=== PATIENT | male | born 1970 ===

== ENCOUNTER 2017-08-23 09:30 | Emergency (ER) | payer BC ==
[2017-08-23] MEDS ORDERED: Tetan/Diph/Pertus SYR(Tdap)* 0.5 ML SYR(BOOSTRIX) use SYR IM ONE (09:36)
--- NOTE | 2017-08-23 09:48 | UC ---
Twila Lo Gabriel, scribed for Federico Hadley MD on 08/23/17 at 0944 . Laceration HPI - HPI Summary HPI Summary: This patient is a 47 year old M presenting to [facility] – [place], [place] with a chief complaint of an abrasion on his right hand. 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 He is not UTD on his vaccinations. The patient rates the pain 1/10 in severity. - History Of Current Complaint Chief Complaint: UCLaceration Stated Complaint: LACERATION Time Seen by Provider: 08/23/17 09:36 Hx Obtained From: Patient Laceration Location: Hand Mechanism Of Injury: Sharp Trauma Onset/Duration: Still Present Severity: Mild Pain Intensity: 1 Pain Scale Used: 0-10 Numeric - Allergies/Home Medications Allergies/Adverse Reactions: Allergies Allergy/AdvReac Type Severity Reaction Status Date / Time No Known Allergies Allergy Verified 08/23/17 09:40 Home Medications: Home Medications NK [No Home Medications Reported] 08/23/17 [History Confirmed 08/23/17] PMH/Surg Hx/FS Hx/Imm Hx Other History Of: Negative For: HIV, Hepatitis B, Hepatitis C - Surgical History Surgical History: None - Family History Known Family History: Negative: Cardiac Disease, Hypertension, Diabetes, Renal Disease, Respiratory Disease, Seizure Disorder, Blood Disorder - Social History Occupation: Employed Full-time Lives: With Family Alcohol Use: None Substance Use Type: None Smoking Status (MU): Never Smoked Tobacco Review of Systems Constitutional: Negative - fever Skin: Other - cut on hand All Other Systems Reviewed And Are Negative: Yes Physical Exam - Summary Physical Exam Summary: VITAL SIGNS: Reviewed. GENERAL: Patient is a well-developed and nourished male who is lying comfortable in the stretcher. Patient is not in any acute respiratory distress. HEAD AND FACE: Normocephalic EYES: PERRLA, EOMI x 2. EARS: Hearing grossly intact. MOUTH: Oropharynx within normal limits. NECK: Supple, trachea is midline, no adenopathy, no JVD, no carotid bruit. CHEST: Symmetric, no tenderness at palpation LUNGS: Clear to auscultation bilaterally. No wheezing or crackles. CVS: Regular rate and rhythm, S1 and S2 present, no murmurs or gallops appreciated. ABDOMEN: Soft, non-tender. Bowel sounds are normal. No abdominal abnormal pulsations. EXTREMITIES: Full ROM in all major joints, no edema, no cyanosis or clubbing. NEURO: Alert and oriented x 3. No acute neurological deficits. Speech is normal and follows commands. SKIN: Dry and warm, there is a small abrasion on the right middle finger Triage Information Reviewed: Yes Vital Signs: Initial Vital Signs Temp 98.9 F 08/23/17 09:37 Pulse 56 08/23/17 09:37 Resp 18 08/23/17 09:37 BP 110/77 08/23/17 09:37 Pulse Ox 100 08/23/17 09:37 Vital Signs Reviewed: Yes Laceration Course/Dx - Course/Dx Course Of Treatment: Patient has a small abrasion in the right middle finger. Patient was not up to date for vaccinations. Patient will be given Boostrix. He will follow up with primary care physician as needed. Patient is hemodynamically stable, alert and oriented 3. All questions were addressed and there is no further concerns. - Differential Dx - Laceration/Wound Provider Diagnoses: Abrasion Discharge - Sign-Out/Discharge Documenting (check all that apply): Discharge/Admit/Transfer - Discharge Plan Condition: Stable Disposition: HOME Patient Education Materials: Abrasion (ED) Referrals: [facility] [place] [facility] [Outside] No Primary Care Phys,NOPCP [Primary Care Provider] - Additional Instructions: Follow-up with PCP as needed. - Billing Disposition and Condition Condition: STABLE Disposition: HOME The documentation as recorded by the Twila clarke Gabriel accurately reflects the service I personally performed and the decisions made by , Federico Hadley MD.
== END 2017-08-23 09:50 | disposition home or self-care (01) ==
LOC: UCEAST 09:30
DX: S60.412A Abrasion of right middle finger, initial encounter (principal); W30.9XXA Contact with unspecified agricultural machinery, initial encounter; Y93.H9 Activity, other involving exterior property and land maintenance, building and construction; Y92.9 Unspecified place or not applicable; Z23 Encounter for immunization
CPT/HCPCS: 90471; 90715; 99201; G0463